=== PATIENT | female | born 1975 | race Caucasian/White ===

== ENCOUNTER 2017-01-12 18:18 | Emergency (ER) | payer BC ==
[2017-01-12 18:26] VITALS: BP 112/75
[2017-01-12] MEDS ORDERED: Ibuprofen TAB* 400 MG PO ONE (18:43)
--- NOTE | 2017-01-12 18:46 | UC ---
Hand/Wrist HPI - HPI Summary HPI Summary: complaint of left middle finger pain that started this afternoon was playing air hockey and had her finger slammed between the two paddles able to bend her finger but it increases the pain rest reduces the pain hasn't taken anything for pain today - History Of Current Complaint Chief Complaint: UCUpperExtremity Stated Complaint: LEFT HAND MIDDLE FINGER INJURY Time Seen by Provider: 01/12/17 18:40 Hx Obtained From: Patient Hx Last Menstrual Period: 12/18/16 - Allergies/Home Medications Allergies/Adverse Reactions: Allergies Allergy/AdvReac Type Severity Reaction Status Date / Time Codeine Allergy Nausea And Verified 01/12/17 18:26 Vomiting Meperidine [From Demerol HCl] Allergy Nausea And Verified 01/12/17 18:26 Vomiting Sulfa Antibiotics Allergy Rash Verified 01/12/17 18:26 PMH/Surg Hx/FS Hx/Imm Hx Previously Healthy: Yes Endocrine History: Hypothyroidism - Surgical History Surgical History: Yes Surgery Procedure, Year, and Place: ERCP, 2004, [place]. Cholecystectomy, 2004 , [facility]. 3 tumors removed from ovary - Family History Known Family History: Negative: Cardiac Disease, Hypertension, Diabetes - Social History Occupation: Employed Full-time Lives: With Family Alcohol Use: None Substance Use Type: None Smoking Status (MU): Never Smoked Tobacco Review of Systems Constitutional: Negative Skin: Negative Eyes: Negative ENT: Negative Respiratory: Negative Cardiovascular: Negative Gastrointestinal: Negative Genitourinary: Negative Motor: Negative Neurovascular: Negative Musculoskeletal: Other: - left middle finger pain Neurological: Negative Psychological: Negative All Other Systems Reviewed And Are Negative: Yes Physical Exam Triage Information Reviewed: Yes Appearance: No Pain Distress, Well-Nourished Vital Signs: Initial Vital Signs Temp 99.3 F 01/12/17 18:23 Pulse 74 01/12/17 18:23 Resp 16 01/12/17 18:23 BP 112/75 01/12/17 18:23 Pulse Ox 100 01/12/17 18:23 Vital Signs Reviewed: Yes Eyes: Positive: Conjunctiva Clear ENT: Positive: Pharynx normal, TMs normal Neck: Positive: No Lymphadenopathy Respiratory: Positive: Lungs clear, Normal breath sounds, No respiratory distress, No accessory muscle use Cardiovascular: Positive: RRR, No Murmur, Pulses Normal Abdomen Description: Positive: Nontender, Soft Bowel Sounds: Positive: Present Musculoskeletal: Positive: Other: - LUE-tenderness throughout the middle finger all joints and phalanx, full ROM No anatomical snuff box tenderness;no tenderness in metacarpals Neurological: Positive: Alert Psychological Exam: Normal Skin Exam: Normal Hand/Wrist Course/Dx - Differential Dx/Diagnosis Differential Diagnosis/HQI/PQRI: Contusion, Fracture, Sprain, Strain Provider Diagnoses: left middle finger contusion Discharge - Discharge Plan Condition: Stable Disposition: HOME Patient Education Materials: Yue Cruz (ED) Referrals: Jessica Sher MD [Primary Care Provider] - Additional Instructions: Increase fluids and rest Take acetaminophen or ibuprofen for fever or pain Please review your discharge instructions. If your symptoms do not improve please call your primary care provider or return to urgent care.
--- NOTE | 2017-01-12 19:43 | RAD ---
Indication: Ecchymosis and swelling at the middle phalanx of the middle finger following injury. Pain. Comparison: No relevant prior exams available on the [facility] [place] [facility] for comparison. Technique: 3 views LEFT third finger. REPORT AND IMPRESSION: Soft tissue swelling from the proximal interphalangeal joint distal. Negative for fracture or malalignment.
== END 2017-01-12 20:13 | disposition home or self-care (01) ==
LOC: UCCORT 18:18
DX: S60.032A Contusion of left middle finger without damage to nail, initial encounter (principal); W23.0XXA Caught, crushed, jammed, or pinched between moving objects, initial encounter; Y92.9 Unspecified place or not applicable; Y93.89 Activity, other specified
CPT/HCPCS: 73140; 99212; A9270-GY; G0463

== ENCOUNTER 2019-02-11 14:59 | Emergency (ER) | payer BC ==
[2019-02-11 15:11] VITALS: BP 114/65
--- NOTE | 2019-02-11 15:59 | UC ---
Cardiac HPI - HPI Summary HPI Summary: 43-year-old female comes in with chief complaint of chest pain and palpitations. Patient started with sternal chest pain about a month ago. It gradually been getting worse and more constant. She is short of breath with. She is not nauseous or sweaty. In the last day she's been having some palpitations where feels like her heart racing especially when she lays down. Shortness of breath is worse when she lays down. Pain is midsternal worse is 6 out of 10 now it's about a 4 out of 10. Occasionally radiates to the right shoulder. Denies any abdominal pain. Recently she's feels like eating makes the pain worse. Denies any calf pain or calf edema. She has occasionally had some pain in the right upper thigh in the last month that is intermittent. She is not on control pills she is not a smoker no history of pulmonary emboli or deep venous thrombosis personally or in her family. No recent travel. No fevers or chills no chest congestion. - History of Current Complaint Chief Complaint: UCChestPain Stated Complaint: CHEST PAIN Time Seen by Provider: 02/11/19 15:03 Hx Last Menstrual Period: 01/27/19 Pain Intensity: 4 - Allergy/Home Medications Allergies/Adverse Reactions: Allergies Allergy/AdvReac Type Severity Reaction Status Date / Time codeine Allergy Nausea And Verified 02/11/19 15:24 Vomiting meperidine [From Demerol] Allergy Nausea And Verified 02/11/19 15:24 Vomiting Sulfa (Sulfonamide Allergy Rash Verified 02/11/19 15:24 Antibiotics) PMH/Surg Hx/FS Hx/Imm Hx Previously Healthy: Yes Endocrine History: Hypothyroidism - Surgical History Surgical History: Yes Surgery Procedure, Year, and Place: ERCP, 2004, [place]. Cholecystectomy, 2004 , [facility]. 3 tumors removed from ovary - Family History Known Family History: Negative: Cardiac Disease, Hypertension, Diabetes - Social History Alcohol Use: Occasionally Substance Use Type: None Smoking Status (MU): Never Smoked Tobacco Review of Systems All Other Systems Reviewed And Are Negative: Yes Constitutional: Positive: Negative Skin: Positive: Negative Eyes: Positive: Negative ENT: Positive: Negative Respiratory: Positive: Shortness Of Breath Cardiovascular: Positive: Palpitations, Chest Pain Gastrointestinal: Positive: Negative Motor: Positive: Negative Neurovascular: Positive: Negative Musculoskeletal: Positive: Negative Neurological: Positive: Negative Psychological: Positive: Negative Is Patient Immunocompromised?: No Physical Exam Triage Information Reviewed: Yes Appearance: Well-Appearing, No Pain Distress, Well-Nourished Vital Signs: Initial Vital Signs Temp 98.8 F 02/11/19 15:05 Pulse 62 02/11/19 15:05 Resp 20 02/11/19 15:05 BP 114/65 02/11/19 15:05 Pulse Ox 99 02/11/19 15:05 Vital Signs Reviewed: Yes Eye Exam: Normal Eyes: Positive: Conjunctiva Clear Neck: Positive: Supple Respiratory: Positive: Chest non-tender, Lungs clear, Normal breath sounds, No respiratory distress Cardiovascular: Positive: RRR Abdomen Description: Positive: Nontender, Soft Musculoskeletal Exam: Normal Musculoskeletal: Positive: Strength Intact, ROM Intact, No Edema - NO CALF TENDERNESS Neurological Exam: Normal Neurological: Positive: Alert, Muscle Tone Normal Psychological Exam: Normal Psychological: Positive: Age Appropriate Behavior Skin Exam: Normal Diagnostics - EKG Cardiac Rate: Bradycardia - AT 1504 Cardiac Rhythm: Sinus: Normal - 54 BPM Ectopy: None ST Segment: Normal - Assessment/Plan Course Of Treatment: I discussed the EKG with the patient. There is no ectopy or ST changes on EKG. I recommended further evaluation in the emergency department. Patient prefers to go by POV. I discussed the case with Dr. Rooney at the [facility] emergency department. - Clinical Impression Provider Diagnosis: Chest pain, Palpitations Discharge - Sign-Out/Discharge Documenting (check all that apply): Patient Departure All imaging exams completed and their final reports reviewed: No Studies - Discharge Plan Condition: Stable Disposition: HOME-RECOMMEND TO ED Patient Education Materials: Chest Pain (ED), Heart Palpitations (ED) Referrals: Елена Guerrero MD [Primary Care Provider] - Additional Instructions: GO DIRECTLY TO THE EMERGENCY DEPARTMENT FOR FURTHER EVALUATION OF YOUR CHEST PAIN AND PALPITATIONS. - Billing Disposition and Condition Condition: STABLE Disposition: Home-Recommend to ED
== END 2019-02-11 16:05 | disposition home health service (06) ==
LOC: UCCORT 14:59
DX: R07.9 Chest pain, unspecified (principal); R00.2 Palpitations
CPT/HCPCS: 93005; 99212; G0463